=== PATIENT | male | born 1985 | race Caucasian/White ===

== ENCOUNTER 2016-12-12 02:33 | Emergency (ER) | payer BC ==
[2016-12-12 03:56] VITALS: BP 151/91
== END 2016-12-12 03:56 | disposition home or self-care (01) ==
LOC: ED 02:33
DX: L30.9 Dermatitis, unspecified (principal)
CPT/HCPCS: Q0163

== ENCOUNTER 2017-01-26 16:35 | Emergency (ER) | payer BC ==
[~2017-01-26] VITALS: Ht 177.8 cm; Wt 82.1 kg
[2017-01-26 16:45] VITALS: BP 147/82
== END 2017-01-26 17:53 | disposition home or self-care (01) ==
LOC: ED 16:35
DX: S29.012A Strain of muscle and tendon of back wall of thorax, initial encounter (principal); S76.912A Strain of unspecified muscles, fascia and tendons at thigh level, left thigh, initial encounter; S76.911A Strain of unspecified muscles, fascia and tendons at thigh level, right thigh, initial encounter; F90.9 Attention-deficit hyperactivity disorder, unspecified type; Z79.899 Other long term (current) drug therapy; Z98.890 Other specified postprocedural states; V49.40XA Driver injured in collision with unspecified motor vehicles in traffic accident, initial encounter; Y93.89 Activity, other specified; Y92.488 Other paved roadways as the place of occurrence of the external cause; Y99.8 Other external cause status
CPT/HCPCS: J1885

== ENCOUNTER 2017-08-08 07:39 | Emergency (ER) | payer BC ==
[~2017-08-08] VITALS: Ht 177.8 cm; Wt 78.0 kg
[2017-08-08 07:42] VITALS: BP 129/75; Ht 177.8 cm; Wt 78.0 kg
== END 2017-08-08 08:09 | disposition home or self-care (01) ==
LOC: ED 07:39
DX: G47.00 Insomnia, unspecified (principal); F41.9 Anxiety disorder, unspecified; F90.9 Attention-deficit hyperactivity disorder, unspecified type

== ENCOUNTER 2017-10-05 01:45 | Emergency (ER) | payer MEDICAID ==
[~2017-10-05] VITALS: Ht 177.8 cm; Wt 80.7 kg
[2017-10-05 01:54] VITALS: Ht 177.8 cm; Wt 80.7 kg
[2017-10-05 05:08] LABS: BASOPHIL % 1.1 % (0-2); PLATELET COUNT 211 x10^3mcL (130-400); RED CELL DISTRIBUTION WIDTH 12.8 % (11.5-14.5)
[2017-10-05 05:26] LABS: CALCIUM 9.3 mg/dL (8.5-10.1); CHLORIDE SERUM 103 mmol/L (98-107); CREATININE SERUM 0.6 mg/dL (0.7-1.3); GFR1 > 60 mL/min; GLUCOSE SERUM 98 mg/dL (74-106); POTASSIUM SERUM 3.8 mmol/L (3.5-5.1); SODIUM SERUM 141 mmol/L (136-145)
[2017-10-05 05:42] LABS: ALBUMIN 4.3 g/dL (3.4-5.0); ALKALINE PHOSPHATASE 101 U/L (46-116); ALT/SGPT 28 U/L (16-63); AST/SGOT 8 U/L (15-37); BILIRUBIN TOTAL 0.33 mg/dL (0.20-1.00); TOTAL PROTEIN, SERUM 7.7 g/dL (6.4-8.2)
[2017-10-05 07:32] VITALS: BP 126/89
== END 2017-10-05 07:33 | disposition home or self-care (01) ==
LOC: ED 01:45
PROVIDERS: Emergency Medicine
DX: G89.29 Other chronic pain (principal); M54.5 Low back pain; J18.9 Pneumonia, unspecified organism
CPT/HCPCS: 36415; J1885

== ENCOUNTER 2017-12-25 22:43 | Emergency (ER) | payer MEDICAID ==
[~2017-12-25] VITALS: Ht 177.8 cm; Wt 88.0 kg
[2017-12-26 00:45] VITALS: BP 124/77
== END 2017-12-26 00:45 | disposition home or self-care (01) ==
LOC: ED 22:43
DX: T43.211A Poisoning by selective serotonin and norepinephrine reuptake inhibitors, accidental (unintentional), initial encounter (principal); F41.1 Generalized anxiety disorder; Y92.89 Other specified places as the place of occurrence of the external cause
CPT/HCPCS: J2060; Q0162

== ENCOUNTER 2018-01-16 11:32 | Emergency (ER) | payer MEDICAID ==
[~2018-01-16] VITALS: Ht 177.8 cm; Wt 85.7 kg
[2018-01-16 11:40] VITALS: Ht 177.8 cm; Wt 85.7 kg
[2018-01-16 12:34] VITALS: BP 132/69
== END 2018-01-16 12:34 | disposition home or self-care (01) ==
LOC: ED 11:32
DX: G47.00 Insomnia, unspecified (principal); F41.9 Anxiety disorder, unspecified

== ENCOUNTER 2018-05-31 18:09 | Emergency (ER) | payer MEDICAID ==
[~2018-05-31] VITALS: Ht 177.8 cm; Wt 93.0 kg
[2018-05-31 18:18] VITALS: BP 148/85; Ht 177.8 cm; Wt 93.0 kg
== END 2018-05-31 18:57 | disposition home or self-care (01) ==
LOC: ED 18:09
DX: F41.9 Anxiety disorder, unspecified (principal); G47.00 Insomnia, unspecified; G89.29 Other chronic pain; M54.5 Low back pain; F90.9 Attention-deficit hyperactivity disorder, unspecified type; F20.9 Schizophrenia, unspecified

== ENCOUNTER 2018-08-18 23:32 | Emergency (ER) | payer MEDICAID ==
[~2018-08-18] VITALS: Ht 177.8 cm; Wt 96.6 kg
[2018-08-18 23:36] VITALS: Ht 177.8 cm; Wt 96.6 kg
[2018-08-19 02:14] VITALS: BP 123/98
== END 2018-08-19 02:14 | disposition home or self-care (01) ==
LOC: ED 23:32
DX: T78.49XA Other allergy, initial encounter (principal); F41.9 Anxiety disorder, unspecified; F20.9 Schizophrenia, unspecified; Z98.890 Other specified postprocedural states; X58.XXXA Exposure to other specified factors, initial encounter
CPT/HCPCS: J7512; Q0163

== ENCOUNTER 2018-09-11 20:33 | Emergency (ER) | payer MEDICAID ==
[2018-09-11 20:48] VITALS: BP 119/70
== END 2018-09-11 21:32 | disposition home or self-care (01) ==
LOC: ED 20:33
DX: F41.9 Anxiety disorder, unspecified (principal); F20.9 Schizophrenia, unspecified; Z98.890 Other specified postprocedural states

== ENCOUNTER 2018-12-12 19:10 | Emergency (ER) | payer MEDICAID ==
[~2018-12-12] VITALS: Ht 177.8 cm; Wt 87.5 kg
[2018-12-12 19:14] VITALS: Ht 177.8 cm; Wt 87.5 kg
[2018-12-12 20:46] VITALS: BP 112/72
== END 2018-12-12 20:46 | disposition home or self-care (01) ==
LOC: ED 19:10
DX: J06.9 Acute upper respiratory infection, unspecified (principal); F41.9 Anxiety disorder, unspecified; F20.9 Schizophrenia, unspecified

== ENCOUNTER 2019-05-30 17:03 | Emergency (ER) | payer OTHER, MEDICAID ==
[~2019-05-30] VITALS: Ht 172.7 cm; Wt 97.1 kg
[2019-05-30 17:20] VITALS: Ht 172.7 cm; Wt 97.1 kg
[2019-05-30 19:02] LABS: BASOPHIL % 1.1 % (0-2); PLATELET COUNT 202 x10^3mcL (130-400); RED CELL DISTRIBUTION WIDTH 12.7 % (11.5-14.5)
[2019-05-30 19:03] LABS: CALCIUM 8.1 mg/dL (8.5-10.1); CARBON DIOXIDE 28.6 mmol/L (21-32); CHLORIDE SERUM 103 mmol/L (98-107); CREATININE SERUM 0.7 mg/dL (0.7-1.3); GFR1 > 60 mL/min; GLUCOSE SERUM 112 mg/dL (74-106); SODIUM SERUM 140 mmol/L (136-145)
[2019-05-30 19:07] LABS: ALKALINE PHOSPHATASE 89 U/L (46-116); ALT/SGPT 98 U/L (16-63); HDL CHOLESTEROL 43 mg/dL (40-60); LIPASE 159 IU/L (73-393); TOTAL PROTEIN, SERUM 7.2 g/dL (6.4-8.2)
[2019-05-30 19:08] LABS: CHOLESTEROL 208 mg/dL (<200); CHOLESTEROL/HDL RATIO 4.8; TRIGLYCERIDES 518 mg/dL (<150)
[2019-05-30 19:42] LABS: AST/SGOT 40 U/L (15-37)
[2019-05-30 20:50] VITALS: BP 126/72
== END 2019-05-30 20:50 | disposition home or self-care (01) ==
LOC: ED 17:03
PROVIDERS: Specialist
DX: R10.13 Epigastric pain (principal); R11.0 Nausea; F41.9 Anxiety disorder, unspecified; G47.00 Insomnia, unspecified
CPT/HCPCS: 36415; J1885; Q0092

== ENCOUNTER 2019-11-06 20:01 | Emergency (ER) | payer OTHER ==
[~2019-11-06] VITALS: Ht 177.8 cm; Wt 99.0 kg
[2019-11-06 20:07] VITALS: Ht 177.8 cm; Wt 99.0 kg
[2019-11-06 20:32] LABS: BASOPHIL % 0.7 % (0-2); PLATELET COUNT 200 x10^3mcL (130-400); RED CELL DISTRIBUTION WIDTH 12.9 % (11.5-14.5)
[2019-11-06 20:45] LABS: CALCIUM 8.5 mg/dL (8.5-10.1); CARBON DIOXIDE 28.2 mmol/L (21-32); CHLORIDE SERUM 103 mmol/L (98-107); CREATININE SERUM 0.9 mg/dL (0.7-1.3); GFR1 > 60 mL/min; GLUCOSE SERUM 116 mg/dL (74-106); POTASSIUM SERUM 3.7 mmol/L (3.5-5.1); SODIUM SERUM 141 mmol/L (136-145)
[2019-11-06 20:47] LABS: ALBUMIN 4.4 g/dL (3.4-5.0); ALKALINE PHOSPHATASE 103 U/L (46-116); ALT/SGPT 187 U/L (16-63); AST/SGOT 57 U/L (15-37); BILIRUBIN TOTAL 0.4 mg/dL (0.20-1.00); TOTAL PROTEIN, SERUM 7.9 g/dL (6.4-8.2)
[2019-11-06 22:28] VITALS: BP 124/78
== END 2019-11-06 22:28 | disposition home or self-care (01) ==
LOC: ED 20:01
PROVIDERS: Emergency Medicine
DX: B34.9 Viral infection, unspecified (principal); M79.10 Myalgia, unspecified site
CPT/HCPCS: 36415; 87804; J1885

== ENCOUNTER 2020-03-06 14:12 | Emergency (ER) | payer OTHER ==
[~2020-03-06] VITALS: Ht 177.8 cm; Wt 95.3 kg
[2020-03-06 14:38] VITALS: Ht 177.8 cm; Wt 95.3 kg
[2020-03-06 15:28] VITALS: BP 149/91
== END 2020-03-06 15:28 | disposition home or self-care (01) ==
LOC: ED 14:12
DX: K29.70 Gastritis, unspecified, without bleeding (principal); Z98.890 Other specified postprocedural states

== ENCOUNTER 2020-03-16 14:06 | Emergency (ER) | payer OTHER ==
[~2020-03-16] VITALS: Ht 177.8 cm; Wt 98.9 kg
[2020-03-16 14:07] VITALS: Ht 177.8 cm; Wt 98.9 kg
[2020-03-16 14:48] LABS: BASOPHIL % 0.9 % (0-2); PLATELET COUNT 199 x10^3mcL (130-400)
[2020-03-16 14:51] LABS: CALCIUM 8.3 mg/dL (8.5-10.1); CARBON DIOXIDE 28.4 mmol/L (21-32); CHLORIDE SERUM 104 mmol/L (98-107); CREATININE SERUM 0.9 mg/dL (0.7-1.3); GFR1 > 60 mL/min; GLUCOSE SERUM 109 mg/dL (74-106); POTASSIUM SERUM 3.8 mmol/L (3.5-5.1); SODIUM SERUM 141 mmol/L (136-145)
[2020-03-16 14:57] LABS: ALBUMIN 4.2 g/dL (3.4-5.0); ALKALINE PHOSPHATASE 93 U/L (46-116); ALT/SGPT 221 U/L (16-63); BILIRUBIN TOTAL 0.51 mg/dL (0.20-1.00); LIPASE 174 IU/L (73-393); TOTAL PROTEIN, SERUM 7.6 g/dL (6.4-8.2)
[2020-03-16 15:20] LABS: AST/SGOT 79 U/L (15-37)
[2020-03-16 16:04] VITALS: BP 139/89
== END 2020-03-16 16:36 | disposition home or self-care (01) ==
LOC: ED 14:06
PROVIDERS: Emergency Medicine
DX: R10.13 Epigastric pain (principal); R11.0 Nausea; R19.7 Diarrhea, unspecified
CPT/HCPCS: 87046; 87046-59